=== PATIENT | female | born 1995 | race Caucasian/White ===

== ENCOUNTER 2017-03-14 02:45 | Emergency (ER) | payer OTHER ==
[~2017-03-14] VITALS: Ht 154.9 cm; Wt 47.6 kg
[~2017-03-14 02:45] MED LIST: AZITHROMYCIN250 MG ORAL
[2017-03-14 03:09] VITALS: BP 127/78
[2017-03-14] MEDS ORDERED: DuoNeb 0.5-3(2.5)mg/3ml neb HHN ONE (03:30)
[2017-03-14 03:31] LABS: APPEARANCE,URINE CLOUDY; KETONES,URINE NEGATIVE (NEGATIVE); LEUKOCYTE ESTERASE ,URINE NEGATIVE (NEGATIVE); NITRITE,URINE NEGATIVE (NEGATIVE); PH,URINE 7 (4.5-8.0); PROTEIN,URINE NEGATIVE (NEGATIVE); UROBILINOGEN,URINE NORMAL MG/DL (0.0-1.0)
--- NOTE | 2017-03-14 03:32 | Emergency Room Report ---
History of Present Illness General Chief Complaint: Flu Like Symptoms Source: Patient Present Illness HPI Patient is a 21-year-old female presented after having increased sore throat. Patient gradual onset of symptoms over the past few weeks. Patient had intermittent improvement and sore throat. She reported having a persistent cough which he been present for quite some time. She reported having a generalized fatigue. She denied any vomiting. She reports having been taking control pills. Allergies: Coded Allergies: No Known Allergies (Unverified , 03/06/16) Patient History Past Medical History: see triage record Last Menstrual Period: MAR 07 Now: No Reviewed Nursing Documentation: PMH: Agreed, PSxH: Agreed Review of Systems All Other Systems: negative except mentioned in HPI Physical Exam Vital Signs Date Time Temp Pulse Resp B/P (MAP) Pulse Ox O2 Delivery O2 Flow Rate FiO2 03/14/17 02:55 98.8 79 20 127/78 98 Room Air General Appearance: well appearing, no apparent distress, alert, GCS 15 Head: normocephalic, atraumatic ENT: hearing grossly normal, normal voice, uvula midline Neck: full range of motion, supple Respiratory: no respiratory distress, speaking full sentences Cardiovascular #1: normal peripheral pulses, regular rate, rhythm, no edema Gastrointestinal: normal bowel sounds, non tender, soft, no mass Musculoskeletal: back normal, no calf tenderness Neurologic: alert, oriented x3, responsive, pattern fitter III-XII nml as tested, normal gait Psychiatric: mood/affect normal Skin: no rash Medical Decision Making Diagnostic Impression: Primary Impression: Pharyngitis ER Course Patient presented for sore throat Differential diagnosis included but was not limited to meningitis, exudative tonsillitis, retropharyngeal abscess, epiglottitis, strep pharyngitis. Patient's benign exam and does not appear to require any further imaging or laboratory testing at this timeThe patient presented a viral infection which did not appear to require antibiotics at this time. The patient is advised to follow up with primary care doctor in 1-2 days. Patient is advised to return if any worsening condition or if any changes in status that are concerning. Labs Test 03/14/17 03:00 Urine Color Yellow Urine Appearance Cloudy Urine pH 7 (4.5-8.0) Urine Specific [place] 1.020 (1.005-1.035) Urine Protein Negative (NEGATIVE) Urine Glucose (UA) Negative (NEGATIVE) Urine Ketones Negative (NEGATIVE) Urine Occult Blood Negative (NEGATIVE) Urine Nitrite Negative (NEGATIVE) Urine Bilirubin Negative (NEGATIVE) Urine Urobilinogen Normal MG/DL (0.0-1.0) Urine Leukocyte Esterase Negative (NEGATIVE) Urine HCG, Qualitative Negative Last Vital Signs Date Time Temp Pulse Resp B/P (MAP) Pulse Ox O2 Delivery O2 Flow Rate FiO2 03/14/17 03:11 79 20 Room Air 03/14/17 03:09 98.8 127/78 98 Status: improved Disposition: HOME, SELF-CARE Condition: Stable Scripts D-Methorphan Hb/Prometh Hcl* (PROMETHAZINE-DM SYRUP*) 118 Ml Syrup 5 ML ORAL Q6H Y for For Cough, #120 ML 0 Refills Prov: Roque Traylor 03/14/17 Loratadine/Pseudoephedrine (CLARITIN-D 24 HOUR TABLET) 1 Each Tab.er.24h 1 TAB PO DAILY, #30 TAB Prov: Roque Traylor 03/14/17 Roque Traylor Mar 14, 2017 03:32
[2017-03-14] MEDS ORDERED: Lidocaine 2% Visc 15ml soln ORAL ONE (03:45)
[2017-03-14] MEDS ORDERED: PROMETHAZINE-D118 ML ORAL (04:05)
[2017-03-14] MEDS ORDERED: CLARITIN-D 241 EACH PO (04:05)
[2017-03-14 04:08] VITALS: BP 127/78
--- NOTE | 2017-03-14 11:55 | Diagnostic Imaging Report ---
Indication: SOB Technique: XRAY CHEST 1 V Comparison: None. Findings: The cardiomediastinal silhouette is normal. The lungs are clear. There is no evidence of pleural fluid. There is minimal scoliosis of the thoracic spine convex to the right. Impression: Minimal scoliosis. Otherwise negative chest.
== END 2017-03-14 04:08 | disposition home or self-care (01) ==
LOC: EMR 03:18
DX: J02.9 Acute pharyngitis, unspecified (principal)
CPT/HCPCS: 71010; 81003; 81025; 94640; 94664; 99284; J7620

== ENCOUNTER 2017-05-06 23:21 | Emergency (ER) | payer OTHER ==
[~2017-05-06] VITALS: Ht 154.9 cm; Wt 47.6 kg
[~2017-05-06 23:21] MED LIST changes: +CLARITIN-D 241 EACH PO; +PROMETHAZINE-D118 ML ORAL
[2017-05-06] MEDS ORDERED: MULTIVITAMINS1 EAC2 ORAL (23:30)
[2017-05-06] MEDS ORDERED: AUBRA1 EACH PO (23:30)
[2017-05-06] MEDS ORDERED: VITAMIN C500 M1 ORAL (23:30)
[2017-05-06 23:35] VITALS: BP 122/84
[2017-05-07] VITALS: BP 122/84
--- NOTE | 2017-05-07 03:22 | Emergency Room Report ---
History of Present Illness General Chief Complaint: Animal Bite Source: Patient Present Illness HPI 22-year-old female no significant past medical history presenting with insect bites to right thigh. Patient states that one day ago she noticed 3 bites in a lying, became very very itchy, has been scratching it. Patient states that she put topical hydrocortisone without relief. Denies any fever chills, no tense leg, has able to ambulate without any issue Allergies: Coded Allergies: No Known Allergies (Unverified , 03/06/16) Patient History Past Medical History: see triage record Past Surgical History: none Pertinent Family History: none Last Menstrual Period: 04/13/17 Now: No : 0 Para: 0 Reviewed Nursing Documentation: PMH: Agreed, PSxH: Agreed Nursing Documentation-PMH Past Medical History: No Stated History Review of Systems All Other Systems: negative except mentioned in HPI Physical Exam Vital Signs Date Time Temp Pulse Resp B/P (MAP) Pulse Ox O2 Delivery O2 Flow Rate FiO2 05/06/17 23:25 98.1 94 14 122/84 99 Room Air Sp02 EP Interpretation: reviewed, normal General Appearance: normal inspection, well appearing, no apparent distress, alert, GCS 15, non-toxic Head: normocephalic, atraumatic Eyes: bilateral eye normal inspection, bilateral eye PERRL, bilateral eye EOMI ENT: normal ENT inspection, normal pharynx, normal voice, moist mucus membranes Neck: normal inspection, full range of motion, supple Respiratory: normal inspection, lungs clear, normal breath sounds, no respiratory distress, no retraction, no wheezing, speaking full sentences, chest symmetrical Cardiovascular #1: normal inspection, regular rate, rhythm, no edema, normal capillary refill Cardiovascular #2: 2+ radial (R), 2+ radial (L) Gastrointestinal: normal inspection, non tender, soft, non-distended, no guarding Musculoskeletal: normal inspection, back normal, normal range of motion, non- tender Neurologic: normal inspection, alert, oriented x3, responsive, motor strength/ tone normal, sensory intact, normal gait, speech normal Psychiatric: normal inspection, judgement/insight normal, memory normal Skin: warm/dry, well hydrated, normal turgor, other - Right thigh with 3 small 1 x 1 cm circular insect bites, surrounding slight ecchymosis, nontender to palpation, no compartment syndrome Medical Decision Making Diagnostic Impression: Primary Impression: Spider bite ER Course 22-year-old female with right thigh insect bite DDX: Insect bites, this time does not appear to be infected Plan: None in the emergency room ER course: Patient has remained stable during ED stay. No rapid spread of rash Disposition: Patient is to be discharged to home. Patient instructed to take Motrin and Benadryl for pain Patient instructed to see his primary care doctor in 3 days for wound recheck Strict return precautions discussed with patient such as fever, chills, worsening/severe pain, tensing of leg, nausea, vomiting, which may indicate severe illness. Patient verbalizes understanding and agrees with plan. Please note that this Emergency Department Report was dictated using [employer] dispatcher technology software, occasionally this can lead to erroneous entry secondary to interpretation by the dictation equipment Last Vital Signs Date Time Temp Pulse Resp B/P (MAP) Pulse Ox O2 Delivery O2 Flow Rate FiO2 05/07/17 00:00 98.1 94 14 122/84 99 Room Air Disposition: HOME, SELF-CARE Condition: Stable Referrals: [employer] [facility],REFERFEL[facility] (PCP) Patient Instructions: Animal Bite Additional Instructions: Please followup with your doctor in 3 days for wound recheck Please return to the emergency room if you're having rapid spread of rash, tenths leg, high fever chills Brie Gregory M.D. May 07, 2017 03:22
== END 2017-05-07 | disposition home or self-care (01) ==
LOC: EMR 23:33
DX: S70.361A Insect bite (nonvenomous), right thigh, initial encounter (principal); W57.XXXA Bitten or stung by nonvenomous insect and other nonvenomous arthropods, initial encounter; Y92.9 Unspecified place or not applicable; L53.9 Erythematous condition, unspecified
CPT/HCPCS: 99282

== ENCOUNTER 2018-01-24 21:23 | Emergency (ER) | payer MEDICAID, OTHER ==
[~2018-01-24] VITALS: Ht 154.9 cm; Wt 47.6 kg
[~2018-01-24 21:23] MED LIST changes: +AUBRA1 EACH PO; +MULTIVITAMINS1 EAC2 ORAL; +VITAMIN C500 M1 ORAL
--- NOTE | 2018-01-24 21:43 | Emergency Room Report ---
History of Present Illness General Chief Complaint: Lower Extremity Injury Source: Patient Present Illness HPI Vision presents with injury to her left lower leg She was going down a flight of stairs when essentially she slipped she reports that she felt the stairs were wet After falling she has sustained abrasions to the left anterior tibial area She started to have a bruise at the knee as well Pain is worse with touch and pressure Denies any lapse of consciousness denies any chest pain or shortness of breath pain is localized to the left lower leg and knee area 4 out of 10 Allergies: Coded Allergies: No Known Allergies (Unverified , 03/06/16) Patient History Past Medical History: see triage record Pertinent Family History: none Last Menstrual Period: 01/19/18 Now: No : 0 Para: 0 Reviewed Nursing Documentation: PMH: Agreed; PSxH: Agreed Nursing Documentation-PMH Past Medical History: No Stated History Review of Systems All Other Systems: negative except mentioned in HPI Physical Exam Vital Signs Date Time Temp Pulse Resp B/P (MAP) Pulse Ox O2 Delivery O2 Flow Rate FiO2 01/24/18 21:25 98.4 87 14 118/86 96 Room Air 98.4 Sp02 EP Interpretation: reviewed, normal General Appearance: well appearing, no apparent distress Head: normocephalic, atraumatic Eyes: bilateral eye PERRL, bilateral eye EOMI ENT: hearing grossly normal, normal pharynx Neck: supple Respiratory: lungs clear Cardiovascular #1: regular rate, rhythm, no edema Gastrointestinal: non tender Musculoskeletal: other - Abrasions to the left anterior tibial area, there is early ecchymosis visible in the left patella, patient is able to bend and extend at the knee and the ankle mild erythema with abrasions in the tibial area Neurologic: alert, oriented x3, responsive Skin: other - As above Lymphatic: no adenopathy Medical Decision Making Diagnostic Impression: Primary Impression: Contusion Additional Impression: Abrasion ER Course Given the history exam and presentation patient had imaging studies obtained the knee x-ray in the lower leg x-ray did not show any acute fractures Patient is ambulatory At this time is stable for conservative outpatient trial Other X-Ray Diagnostic Results Other X-Ray Diagnostic Results #1: X-Ray ordered: Left knee # of Views/Limited Vs Complete: 3 View Indication: Pain EP Interpretation: Yes Interpretation: no dislocation, no soft tissue swelling, no fractures Impression: No acute disease Electronically Signed by: Sulma Delacruz DO Other X-Ray Diagnostic Results #2: X-Ray ordered: Left tib-fib # of Views/Limited Vs Complete: 2 View Indication: Pain EP Interpretation: Yes Interpretation: no dislocation, no soft tissue swelling, no fractures Impression: No acute disease Electronically Signed by: Sulma Delacruz DO Last Vital Signs Date Time Temp Pulse Resp B/P (MAP) Pulse Ox O2 Delivery O2 Flow Rate FiO2 01/24/18 21:25 98.4 87 14 118/86 96 Room Air 98.4 Status: improved Disposition: HOME, SELF-CARE Condition: Stable Scripts Ibuprofen* (MOTRIN*) 600 Mg Tablet 600 MG ORAL Q8H PRN for For Pain, #20 TAB 0 Refills Prov: Sulma Delacruz DO 01/24/18 Additional Instructions: Patient is provided with the discharge instructions notified to follow up with primary doctor in the next 2-3 days otherwise return to the er with any worsening symptoms. Please note that this report is being documented using [employer] technology. This can lead to erroneous entry secondary to incorrect interpretation by the dictating instrument. Sulma Delacruz DO Jan 24, 2018 21:43
[2018-01-24] MEDS ORDERED: IBUPROFEN600 MG ORAL (22:22)
[2018-01-24 22:34] VITALS: BP 122/77
--- NOTE | 2018-01-25 12:03 | Diagnostic Imaging Report ---
Indication: Trauma, pain, status post fall Technique: 2 views of the left tibia and fibula Comparison: none Findings: No acute fractures. No dislocations. Joint spaces are preserved. No radiopaque foreign body. Impression: Negative
--- NOTE | 2018-01-25 12:04 | Diagnostic Imaging Report ---
Indications: Pain, status post fall Technique: Three views of the left knee Comparison: None Findings: No acute fractures. No dislocations. Joint spaces are preserved. No radiopaque foreign body. Normal mineralization. No suprapatellar effusion Impression: No acute process
== END 2018-01-24 22:35 | disposition home or self-care (01) ==
LOC: EMR 21:41
DX: S80.12XA Contusion of left lower leg, initial encounter (principal); S80.812A Abrasion, left lower leg, initial encounter; W01.0XXA Fall on same level from slipping, tripping and stumbling without subsequent striking against object, initial encounter; Y92.9 Unspecified place or not applicable
CPT/HCPCS: 99284

== ENCOUNTER 2018-05-08 01:26 | Emergency (ER) | payer MEDICAID ==
[~2018-05-08] VITALS: Ht 154.9 cm; Wt 47.6 kg
[~2018-05-08 01:26] MED LIST changes: +IBUPROFEN600 MG ORAL
[2018-05-08 01:39] VITALS: BP 127/89
--- NOTE | 2018-05-08 03:06 | Emergency Room Report ---
History of Present Illness General Chief Complaint: Pain Present Illness HPI 23F with three hours discomfort left leg. Started while sleeping. Pt. is concerned this is a blood clot in the leg. She is concerned b/c she is on OCP and knows this increases the risk. No smoking. No trauma. No PMH Allergies: Coded Allergies: No Known Allergies (Unverified , 03/06/16) Patient History Last Menstrual Period: apr Now: No Review of Systems Constitutional: Reports: no symptoms Eye: Reports: no symptoms ENT: Reports: no symptoms Respiratory: Reports: no symptoms Cardiovascular: Reports: no symptoms Gastrointestinal: Reports: no symptoms Genitourinary: Reports: no symptoms Musculoskeletal: Reports: no symptoms Skin: Reports: no symptoms Psychiatric: Reports: no symptoms Neurological: Reports: no symptoms Endocrine: Reports: no symptoms Hematologic/Lymphatic: Reports: no symptoms Allergic: Reports: no symptoms All Other Systems: negative except mentioned in HPI Physical Exam Vital Signs Date Time Temp Pulse Resp B/P (MAP) Pulse Ox O2 Delivery O2 Flow Rate FiO2 05/08/18 01:27 98.2 86 14 127/89 95 Room Air Sp02 EP Interpretation: reviewed, normal General Appearance: normal inspection, well appearing, no apparent distress, alert, GCS 15, non-toxic Head: normocephalic, atraumatic Eyes: bilateral eye normal inspection, bilateral eye PERRL, bilateral eye EOMI ENT: normal ENT inspection, hearing grossly normal, normal pharynx, no angioedema, normal voice, moist mucus membranes Neck: normal inspection, full range of motion, supple, no meningismus, no bony tend Respiratory: normal inspection, lungs clear, normal breath sounds, no rhonchi, no respiratory distress, no retraction, no accessory muscle use, no wheezing Cardiovascular #1: normal inspection, regular rate, rhythm, no edema Gastrointestinal: normal inspection, normal bowel sounds, non tender, soft, no mass, non-distended Musculoskeletal: gait/station normal, normal range of motion, other - no swelling no tenderness Neurologic: normal inspection, alert, oriented x3, responsive, motor strength/ tone normal Psychiatric: normal inspection, judgement/insight normal, memory normal Suicide Risk Assessment: Suicidal Ideation: No Had intent to initiate attempt: No Pt's plan for suicide attempt: No Has means to complete attempt: No Skin: normal inspection, normal color, no rash, warm/dry Medical Decision Making Diagnostic Impression: Primary Impression: Pain ER Course The history is too brief for DVT and the PE is completely normal, no swelling no tenderness. Advised patient to try local heat, NSAIDs. If leg pain continues one week to return here or PMD. Last Vital Signs Date Time Temp Pulse Resp B/P (MAP) Pulse Ox O2 Delivery O2 Flow Rate FiO2 05/08/18 01:39 98.2 78 18 127/89 95 Room Air Status: improved Disposition: HOME, SELF-CARE Condition: Stable Patient Instructions: Leg Cramps Javier Wade M.D. May 08, 2018 03:06
[2018-05-08 03:11] VITALS: BP 128/86
== END 2018-05-08 03:11 | disposition home or self-care (01) ==
LOC: EMR 03:07
DX: M79.605 Pain in left leg (principal)
CPT/HCPCS: 99282